=== PATIENT | female | born 1960 | race Caucasian/White ===

== ENCOUNTER → 2022-08-05 | Outpatient (CLI) | payer OTHER | LOC: M RAD 15:39 | PROVIDERS: ATTEND Physician Assistant Medical | DX: I50.21 Acute systolic (congestive) heart failure (principal); M71.22 Synovial cyst of popliteal space [Baker], left knee ==

== ENCOUNTER → 2023-03-11 | Outpatient (CLI) | payer OTHER | LOC: M SLEEP HO 03-04 09:56 | PROVIDERS: ATTEND Family Medicine | DX: G47.9 Sleep disorder, unspecified (principal); R40.0 Somnolence ==

== ENCOUNTER → 2024-01-01 | Outpatient (CLI) | payer OTHER ==
[~2024-01-01] MED LIST: ALBU8.5H INH; ASPI-226 PO; DIGO0.123 PO; ENTR1TAB PO; ERGO500029 PO; FARX1TAB3 PO; FENO134C19 PO; GABA-282 PO; ICOS1CAP PO; INSU100I38 SC; LORA-1041 PO; METF10004 PO; METO1TAB7 PO; OMEP40CA5 PO; ROSU20TA61 PO; SEMA2PEN SC; SPIR-10 PO; TORS10TA3 PO; TORS20TA2 PO; TRAM50TA2 PO
== END ==
LOC: M SLEEP 20:00
PROVIDERS: ATTEND Physician Assistant
DX: G47.33 Obstructive sleep apnea (adult) (pediatric) (principal)